=== PATIENT | female | born 1955 | race Caucasian/White ===

== ENCOUNTER 2018-04-14 19:20 | Emergency (ER) | payer OTHER ==
[~2018-04-14] VITALS: Ht 172.7 cm; Wt 72.6 kg
[~2018-04-14 19:20] MED LIST: CEPHALEXIN500 MG PO; NORCO 5-325 TA1 EACH PO
[2018-04-14] MEDS ORDERED: FLAGYL500 MG PO (22:16)
[2018-04-14] MEDS ORDERED: NORCO 5-325 TA1 EACH PO (22:16)
[2018-04-14] MEDS ORDERED: CIPRO500 MG PO (22:16)
[2018-04-15] MEDS ORDERED: ZOFRAN ODT4 MG PO (15:05)
[2018-04-15] MEDS ORDERED: PHENERGAN25 MG PR (15:36)
== END 2018-04-14 22:29 | disposition home or self-care (01) ==
LOC: ED 19:20
DX: K57.32 Diverticulitis of large intestine without perforation or abscess without bleeding (principal); Z87.891 Personal history of nicotine dependence; Z88.1 Allergy status to other antibiotic agents; Z88.8 Allergy status to other drugs, medicaments and biological substances
CPT/HCPCS: 74177; 80053; 81001; 83690; 85025; 96361; 96374; 96375; 96376; 99284; J1170; J2405; J7030; Q9967

== ENCOUNTER 2018-04-15 14:48 | Emergency (ER) | payer OTHER ==
[~2018-04-15] VITALS: Ht 172.7 cm; Wt 72.6 kg
[~2018-04-15 14:48] MED LIST changes: +CIPRO500 MG PO; +FLAGYL500 MG PO
[2018-04-15] MEDS ORDERED: ZOFRAN ODT4 MG PO (15:05)
[2018-04-15] MEDS ORDERED: PHENERGAN25 MG PR (15:36)
== END 2018-04-15 16:58 | disposition home or self-care (01) ==
LOC: ED 14:48
DX: K57.92 Diverticulitis of intestine, part unspecified, without perforation or abscess without bleeding (principal); Z88.1 Allergy status to other antibiotic agents; Z88.8 Allergy status to other drugs, medicaments and biological substances
CPT/HCPCS: 96361; 96374; 96375; 99283; J2550; J2765; J7030

== ENCOUNTER 2020-02-22 16:38 | Emergency (ER) | payer OTHER ==
[~2020-02-22] VITALS: Ht 172.7 cm; Wt 72.6 kg
[~2020-02-22 16:38] MED LIST changes: +PHENERGAN25 MG PR; +ZOFRAN ODT4 MG PO
[2020-02-22] MEDS ORDERED: NORCO 5-325 TA1 EACH PO (19:57)
[2020-02-22] MEDS ORDERED: AUGMENTIN 875-1 EACH PO (19:57)
== END 2020-02-22 20:25 | disposition home or self-care (01) ==
LOC: ED 16:38
DX: R10.32 Left lower quadrant pain (principal); Z87.891 Personal history of nicotine dependence; Z88.8 Allergy status to other drugs, medicaments and biological substances; Z88.1 Allergy status to other antibiotic agents; Z88.5 Allergy status to narcotic agent
CPT/HCPCS: 74177; 80053; 85025; 99284-25; J2060; Q9967

== ENCOUNTER 2020-05-25 06:59 | Day surgery (SDC) | payer OTHER ==
[~2020-05-25] VITALS: Ht 172.7 cm; Wt 72.6 kg
[~2020-05-25 06:59] MED LIST changes: +AUGMENTIN 875-1 EACH PO; +KEFLEX500 MG PO; +MELOXICAM15 MG PO
[2020-05-25] MEDS ORDERED: MULTI VITAMIN1 EACH PO (07:21)
[2020-05-25] MEDS ORDERED: ALEVE220 M1 PO (07:22)
--- NOTE | 2020-05-25 09:16 | NUR ---
05/25/20 0916 Silvia Rivera 0906 PT ARRIVED TO PACU ON 2L VIA MASK, PT WAKES EASILY AND DENIES PAIN AND NAUSEA. 0914 AT BEDSIDE TALKING TO PT. VSS.
--- NOTE | 2020-05-27 16:02 | OR ---
[facility] [address], [place] [address] Signed DATE OF OPERATION: 05/25/2020 SURGEON: Kelly Leach MD PREOPERATIVE DIAGNOSIS: History of recurrent diverticulitis, last episode February 22, 2020. POSTOPERATIVE DIAGNOSIS: Sigmoid diverticulosis, no evidence of malignancy or polyps. PROCEDURE: Total colonoscopy to cecum. ANESTHESIA: Intravenous sedation, fentanyl 100 mcg, Versed 3 mg. INDICATION: This 64-year-old white woman is a patient of Mariola Lyons and has had an episode of diverticulitis in February of 2020 requiring emergency room evaluation and treatment and CT scan confirming diverticulitis. She was treated with antibiotics and ultimately resolved. She has had two episodes in the past, which were likely diverticulitis, the previous episode in 2018. She has no family history of colon cancer or inflammatory bowel disease. She is admitted at this time to undergo colonoscopy to assure diverticulosis and no evidence of cancer. The risks of bleeding, infection, and perforation related to colonoscopy reviewed with her. She understands and wished to proceed. FINDINGS: The prep was good. Complete colonoscopy was undertaken to the cecum without question. She had no polyps or cancer. Diverticula were noted in the sigmoid. She had a somewhat stiff sigmoid as well. DESCRIPTION OF PROCEDURE: The patient was brought to the endoscopy suite and placed in lateral decubitus position, given intravenous sedation to the point of slurred speech and nystagmus. Digital rectal examination was normal. The Olympus video colonoscope was passed in the rectum and manipulated throughout the colon ultimately intubating the cecum itself. Diverticula were noted in the sigmoid and left colon to a small extent. The scope was withdrawn. Examination throughout showed Electronically Signed By: KELLY LEACH MD 05/27/20 1602 PATIENT NAME: BETO HERNDON OPERATIVE REPORT DATE OF : 57 REPORT #: [id number] PHYSICIAN: KELLY LEACH MD PCP: MARIOLA LYONS PA-C REPORT IS CONFIDENTIAL AND NOT TO BE RELEASED WITHOUT AUTHORIZATION [facility] [address], [place] [address] Signed no sign of polyps or colitis, only the diverticula as previously noted. Notably, the sigmoid was somewhat stiff and fixed, but not insurmountable in passage. Retroflexed view was normal and scope was removed and the patient was taken to the recovery room in good condition. CONCLUDING DIAGNOSIS: Diverticulosis. No evidence of current inflammation. No sign of polyps or cancer. PLAN: Recommend a repeat colonoscopy in 10 years sooner if clinically indicated. The patient does not have indication for sigmoid resection at present. The recurrent bouts of diverticulitis or persisting pain or other indications may ultimately come to pass. Recommend at this time high-fiber diet. MD SARA Anguiano/ROMANA /[id number] cc: Mariola Lyons PA-C Copies: MARIOLA LYONS PA-C ~ Electronically Signed By: KELLY LEACH MD 05/27/20 1602 PATIENT NAME: BETO HERNDON OPERATIVE REPORT DATE OF : 57 REPORT #: [id number] PHYSICIAN: KELLY LEACH MD PCP: MARIOLA LYONS PA-C REPORT IS CONFIDENTIAL AND NOT TO BE RELEASED WITHOUT AUTHORIZATION
== END 2020-05-25 09:45 | disposition home or self-care (01) ==
LOC: DS 06:59 → OPS 06:59 → DS 08:00 → OPS 08:00
PROVIDERS: ATTEND Surgery
PROC: 0DJD8ZZ Inspection of Lower Intestinal Tract, Via Natural or Artificial Opening Endoscopic (ICD-10-PCS; principal; 2020-05-25 08:00)
DX: K57.30 Diverticulosis of large intestine without perforation or abscess without bleeding (principal); Z88.1 Allergy status to other antibiotic agents; Z88.8 Allergy status to other drugs, medicaments and biological substances; Z79.899 Other long term (current) drug therapy
CPT/HCPCS: 99153; G0500; J2250; J3010; J7121

== ENCOUNTER 2022-05-14 09:04 | Emergency (ER) | payer MEDICARE, OTHER ==
[~2022-05-14] VITALS: Ht 172.7 cm; Wt 73.9 kg
[~2022-05-14 09:04] MED LIST changes: +ALEVE220 M1 PO; +MULTI VITAMIN1 EACH PO
[2022-05-14] MEDS ORDERED: MELOXICAM5 MG PO (09:56)
[2022-05-14] MEDS ORDERED: LYVISPAH5 MG PO (09:57)
[2022-05-14] MEDS ORDERED: EPIN0.3P IM (09:57)
[2022-05-14] MEDS ORDERED: HYDROCODON-ACE1 EA10 PO (10:39)
== END 2022-05-14 10:56 | disposition home or self-care (01) ==
LOC: ED 09:04
DX: S76.011A Strain of muscle, fascia and tendon of right hip, initial encounter (principal); S80.01XA Contusion of right knee, initial encounter; W10.9XXA Fall (on) (from) unspecified stairs and steps, initial encounter; Z87.891 Personal history of nicotine dependence; Z88.8 Allergy status to other drugs, medicaments and biological substances; Z91.030 Bee allergy status; Z88.1 Allergy status to other antibiotic agents; Z88.5 Allergy status to narcotic agent; Z79.899 Other long term (current) drug therapy
CPT/HCPCS: 73502; 73590; 99283-25; A9270

== ENCOUNTER 2024-08-24 17:09 | Emergency (ER) | payer MEDICARE, OTHER ==
[~2024-08-24] VITALS: Ht 172.7 cm; Wt 72.6 kg
[~2024-08-24 17:09] MED LIST changes: +EPIN0.3P IM; +HYDROCODON-ACE1 EA10 PO; +LYVISPAH5 MG PO; +MELOXICAM5 MG PO
[2024-08-24 19:00] VITALS: BP 128/74
== END 2024-08-24 19:00 | disposition home or self-care (01) ==
LOC: ED 17:09
DX: S80.211A Abrasion, right knee, initial encounter (principal); W18.39XA Other fall on same level, initial encounter; J45.909 Unspecified asthma, uncomplicated; Z87.891 Personal history of nicotine dependence; Z88.5 Allergy status to narcotic agent; Z88.8 Allergy status to other drugs, medicaments and biological substances; Z88.1 Allergy status to other antibiotic agents; Z91.030 Bee allergy status; Z79.899 Other long term (current) drug therapy
CPT/HCPCS: 73560; 99283

== ENCOUNTER 2025-03-21 14:38 | Emergency (ER) | payer MEDICARE, OTHER ==
[~2025-03-21] VITALS: Ht 172.7 cm; Wt 77.3 kg
[2025-03-21] MEDS ORDERED: ONDANSETRON ODT4 MG PO ×2 (14:59→17:54)
[2025-03-21] MEDS ORDERED: HYDROmorphone HCL 1 MG/ML SYR IV ONE ×3 (15:15→18:00)
[2025-03-21] MEDS ORDERED: KETAMINE in NS 50 MG/5 ML SYR IV ONE ×2 (15:45→16:05)
[2025-03-21] MEDS ORDERED: HYDROCODON-ACE1 EAC8 PO (17:53)
[2025-03-21] MEDS ORDERED: HYDROCODONE/APAP 10/325 1 TAB PO ONE (18:00)
[2025-03-21 18:09] VITALS: BP 151/83
[2025-03-26] MEDS ORDERED: VENTOLIN HFA18 GM INH (16:12)
== END 2025-03-21 18:40 | disposition home or self-care (01) ==
LOC: ED 14:38
DX: S52.572A Other intraarticular fracture of lower end of left radius, initial encounter for closed fracture (principal); S52.612A Displaced fracture of left ulna styloid process, initial encounter for closed fracture; J45.909 Unspecified asthma, uncomplicated; Z87.891 Personal history of nicotine dependence; Z91.030 Bee allergy status; Z88.1 Allergy status to other antibiotic agents; Z88.8 Allergy status to other drugs, medicaments and biological substances; Z88.5 Allergy status to narcotic agent; Z88.3 Allergy status to other anti-infective agents; W18.39XA Other fall on same level, initial encounter; Y93.K1 Activity, walking an animal
CPT/HCPCS: 25605; 73100; 73110; 96374; 96375; 96376; 99283-25; A9270; J1171; J2405; J2704; J3490

== ENCOUNTER 2025-03-28 05:49 | Day surgery (SDC) | payer MEDICARE, OTHER ==
[~2025-03-28] VITALS: Ht 172.7 cm; Wt 75.0 kg
[~2025-03-28 05:49] MED LIST changes: +HYDROCODON-ACE1 EAC8 PO; +LACTATED RINGER'S 1,000 ML IV SCH; +ONDANSETRON ODT4 MG PO; +VENTOLIN HFA18 GM INH
[2025-03-28] MEDS ORDERED: LIDOCAINE HCL 2% 5 ML SDV ONE (06:01)
[2025-03-28] MEDS ORDERED: Ropivacaine HCl 0.5% 30 ML VIAL ONE (06:07)
[2025-03-28 06:08] VITALS: BP 108/70
[2025-03-28] MEDS ORDERED: DEXAMETHASONE SOD PHOS 10 MG/ML VIAL ONE (06:20)
[2025-03-28] MEDS ORDERED: DEXAMETHASONE SOD PHOS 4 MG/ML VIAL ONE (06:20)
[2025-03-28] MEDS ORDERED: CEFAZOLIN SODIUM 2 GM/20 ML SYR IV SCH (07:00)
[2025-03-28] MEDS ORDERED: TRANEXAMIC ACID IN NACL,ISO-OS 1,000 MG/100 ML PIGGYBACK IV SCH (07:00)
[2025-03-28] MEDS ORDERED: IBLOOD GLUCOSE TEST STRIP 1 EA TEST VI PRN (07:00)
[2025-03-28] MEDS ORDERED: LIDOCAINE HCL 1% 5 ML SDV INJ ONE (07:00)
[2025-03-28] MEDS ORDERED: HYDROCODON-ACE1 EA11 PO (08:06)
[2025-03-28] MEDS ORDERED: HYDROCODONE/ACETA 7.5/325 TAB PO PRN (08:15)
[2025-03-28] MEDS ORDERED: NALOXONE HCL 0.4 MG SYR IV PRN (08:30)
[2025-03-28] MEDS ORDERED: fentaNYL citrate 50 MCG/ML SDV IV PRN ×2 (08:30)
[2025-03-28 08:42] VITALS: BP 93/61
--- NOTE | 2025-03-28 15:12 | NUR ---
03/28/25 1512 Sheets,Silvia 0759 PT ARRIVED TO PACU AND WAKES EASILY. PT REORIENTED TO PACU. SINUS IRREGULAR HEART BEAT NOTED.
--- NOTE | 2025-03-29 09:36 | OR ---
[facility] [address] [place], [place] [address] Signed DATE OF OPERATION: 03/28/2025 SURGEON: Clementine Guerrero MD PREOPERATIVE DIAGNOSIS: Left distal radius fracture displaced. POSTOPERATIVE DIAGNOSIS: Left distal radius fracture displaced. PROCEDURE PERFORMED: Open reduction and internal fixation of left distal radius. CLIENT PROJECT COORDINATOR: None. ANESTHESIA: MAC with block. TOURNIQUET TIME: 36 minutes. IMPLANTS: Jann DVR small plate with six screws. BRIEF HISTORY: Rayne is a 69-year-old female, who suffered a comminuted distal radius fracture. Risks, benefits, and alternatives of surgery were discussed with her and she elected to proceed. DESCRIPTION OF PROCEDURE: Once consent was obtained, she was taken to the operating room. After adequate anesthesia, she was placed on the operating room table with a hand table. A well-padded proximal arm tourniquet was placed. The arm was then prepped and draped in a standard sterile fashion, exsanguinated using Esmarch bandage and tourniquet inflated to 200 mmHg. A standard volar approach through the distal radius was taken through skin and subcutaneous tissue. The FCR was identified, retracted ulnarly and protected. The floor of the FCR sheath was then incised longitudinally and the pronator was identified. This was then split and elevated off the distal radius. Fracture was then closed reduced. We obtained actually good reduction on the first attempt. The plate was then Electronically Signed By: CLEMENTINE GUERRERO MD 03/29/25 0936 PATIENT NAME: RAYNE HERNDON OPERATIVE REPORT DATE OF : 57 REPORT #: [id number] PHYSICIAN: CLEMENTINE GUERRERO MD PCP: EDI LYNN PA-C REPORT IS CONFIDENTIAL AND NOT TO BE RELEASED WITHOUT AUTHORIZATION [facility] [address] [place] [id number] Signed centered on the distal radius in the image intensifier views and a single screw was placed in the middle of it. This was then adjusted so that was in the proper alignment and four screws were placed in the distal portion of the plate engaging both the ulnar and radial aspects of the distal radius. Excellent compression alignment was obtained. The final proximal screw was placed. Final radiograph showed good reduction and good plate placement, screw lengths. The wound was copiously irrigated with normal saline. The pronator was closed back over the plate using 2-0 Monocryl. Subcutaneous tissue was closed using 3-0 Monocryl and the skin with 3-0 Stratafix. The wound was sealed with LiquiBand and Steri-Strips and dressed with Allevyn and sterile gauze. She was placed in a radial gutter splint and taken to the recovery room in satisfactory condition. All sponge, needle, and instrument counts were correct. Clementine Guerrero MD BA/MAURICEL /[id number] Copies: ~ Electronically Signed By: CLEMENTINE GUERRERO MD 03/29/25 0936 PATIENT NAME: RAYNE HERNDON OPERATIVE REPORT DATE OF : 57 REPORT #: [id number] PHYSICIAN: CLEMENTINE GUERRERO MD PCP: EDI LYNN PA-C REPORT IS CONFIDENTIAL AND NOT TO BE RELEASED WITHOUT AUTHORIZATION
== END 2025-03-28 08:52 | disposition home or self-care (01) ==
LOC: DS 05:49
PROVIDERS: ATTEND Specialist
PROC: 0PSJ04Z Reposition Left Radius with Internal Fixation Device, Open Approach (ICD-10-PCS; 2025-03-28)
PROC: 3E0T3BZ Introduction of Anesthetic Agent into Peripheral Nerves and Plexi, Percutaneous Approach (ICD-10-PCS; principal; 2025-03-28 07:00)
DX: S52.572A Other intraarticular fracture of lower end of left radius, initial encounter for closed fracture (principal); X58.XXXA Exposure to other specified factors, initial encounter; E78.5 Hyperlipidemia, unspecified; Z88.1 Allergy status to other antibiotic agents; Z88.5 Allergy status to narcotic agent; Z79.899 Other long term (current) drug therapy
CPT/HCPCS: 01830; 64417; 73100; 76942; C1713; J0690; J1100; J2003; J2704; J2795; J7121